=== PATIENT | male | born 1965 | race Caucasian/White ===

== ENCOUNTER 2017-03-12 14:48 | Emergency (ER) | payer OTHER ==
[2017-03-12 15:00] VITALS: BP 134/59
--- NOTE | 2017-03-12 15:30 | ED ---
Throat Pain/Nasal Congestion - HPI Summary HPI Summary: 51 YO M WITH C/O RT EYE IRRITATION X 1 & 1/2 WEEKS. LOWER MEDIAL EYELID IS SWOLLEN. SOME DISCHARGE IN THE AM. NO VISION CHANGE. USES GLASSES, NO CONTACTS. - History of Current Complaint Chief Complaint: UCEye Time Seen by Provider: 03/12/17 15:07 - Allergies/Home Medications Allergies/Adverse Reactions: Allergies Allergy/AdvReac Type Severity Reaction Status Date / Time No Known Allergies Allergy Verified 03/12/17 15:00 PMH/Surg Hx/FS Hx/Imm Hx Previously Healthy: Yes Infectious Disease History: No Infectious Disease History: Denies: History Other Infectious Disease, Traveled Outside the [place] in Last 30 Days - Social History Alcohol Use: Daily Alcohol Amount: wine with dinner Substance Use Type: Reports: None Smoking Status (MU): Never Smoked Tobacco Review of Systems Constitutional: Negative Positive: Drainage ENT: Negative Cardiovascular: Negative Respiratory: Negative Gastrointestinal: Negative Genitourinary: Negative Musculoskeletal: Negative Skin: Negative Neurological: Negative Psychological: Normal All Other Systems Reviewed And Are Negative: Yes Physical Exam Triage Information Reviewed: Yes Vital Signs On Initial Exam: Initial Vitals Temp Pulse Resp BP Pulse Ox 98.2 F 66 18 134/59 98 03/12/17 14:54 03/12/17 14:54 03/12/17 14:54 03/12/17 14:54 03/12/17 14:54 Vital Signs Reviewed: Yes Appearance: Positive: Well-Appearing Skin: Positive: Skin Color Reflects Adequate Perfusion Head/Face: Positive: Normal Head/Face Inspection Eyes: Positive: EOMI, LORE, Conjunctiva Clear, Other: - SWELLING MEDIAL LOWER EYELID. IT IS A STYE. ENT: Positive: Normal ENT inspection Neck: Positive: Supple Respiratory/Lung Sounds: Positive: Clear to Auscultation Cardiovascular: Positive: RRR Musculoskeletal: Positive: Normal Neurological: Positive: Normal Psychiatric: Positive: Normal Diagnostics - Vital Signs Vital Signs Temp Pulse Resp BP Pulse Ox 03/12/17 14:54 98.2 F 66 18 134/59 98 - Laboratory Lab Statement: Any lab studies that have been ordered have been reviewed, and results considered in the medical decision making process. EENT Course/Dx - Diagnoses Provider Diagnoses: Stye Discharge - Discharge Plan Condition: Stable Disposition: HOME Prescriptions: Tobramycin 0.3% OPHTH.MARLENE* 1 drop RIGHT EYE Q4H #1 btl Patient Education Materials: Karmen (ED) Referrals: Kirt THOMAS,Ana Cedillo [Primary Care Provider] - Additional Instructions: FOLLOW UP WITH YOUR PRIMARY CARE DOCTOR OR OPHTHALMOLOGY IF NOT IMPROVED. GET RECHECKED FOR ANY WORSENING OF YOUR CONDITION OR QUESTIONS OR CONCERNS.
== END 2017-03-12 15:41 | disposition home or self-care (01) ==
LOC: UCEAST 14:48
DX: H00.022 Hordeolum internum right lower eyelid (principal)
CPT/HCPCS: 99211; G0463